=== PATIENT | female | born 1955 | race Caucasian/White ===

== ENCOUNTER 2023-01-09 18:11 | Inpatient (IN) | payer MEDICARE ==
[~2023-01-09] VITALS: Ht 160 cm; Wt 68.5 kg
[2023-01-09] MEDS ORDERED: AMLO10TA59 PO (18:30)
[2023-01-09] MEDS ORDERED: CLON-418 PO (18:30)
[2023-01-09] MEDS ORDERED: DESV100T12 PO (18:30)
[2023-01-09] MEDS ORDERED: TRAZ-182 PO (18:30)
[2023-01-09] MEDS ORDERED: BLOOD SUGAR DIAGNOSTIC 1 EACH STRIP VI ONE (22:45)
[2023-01-09] MEDS ORDERED: MAGNESIUM HYDROXIDE 30 ML LIQUID UDC PO PRN (22:45)
[2023-01-09] MEDS ORDERED: LORAZEPAM 1 MG TABLET PO PRN (22:45)
[2023-01-09] MEDS ORDERED: ACETAMINOPHEN 325 MG TABLET PO PRN (22:45)
[2023-01-09] MEDS ORDERED: MAG HYDROX/AL HYDROX/SIMETH 30 ML LIQUID UDC PO PRN (22:45)
[2023-01-09 23:09] VITALS: BP 129/81; TEMP 98.1; O2SAT 97
[2023-01-10] MEDS: TEMAZEPAM 7.5 MG CAPSULE PO PRN (00:06)
[2023-01-10 07:52] LABS: BASOPHILS # (AUTO) 0.1 K/UL (0.0-0.2); BASOPHILS % (AUTO) 1.4 % (0.0-2.0); EOSINOPHILS # (AUTO) 0.3 K/uL (0.0-0.7); EOSINOPHILS % (AUTO) 5.3 % (0.0-7.0); HEMATOCRIT 39.4 % (31.2-41.9); HEMOGLOBIN 13.6 g/dL (10.9-14.3); LYMPHOCYTES # (AUTO) 1.1 K/uL (0.8-4.8); LYMPHOCYTES % (AUTO) 22.2 % (20.5-51.5); MEAN CORPUSCULAR HEMOGLOBIN 34.6 uug (24.7-32.8); MEAN CORPUSCULAR HGB CONC 34 g/dL (32.3-35.6); MEAN CORPUSCULAR VOLUME 100.4 fL (75.5-95.3); MONOCYTES # (AUTO) 0.5 K/uL (0.1-1.30); MONOCYTES % (AUTO) 9.7 % (0.0-11.0); NEUTROPHILS # (AUTO) 2.9 K/uL (1.8-8.9); NEUTROPHILS % (AUTO) 61.4 % (38.5-71.5); PLATELET COUNT (AUTO) 355 K/uL (179-408); RED BLOOD CELL COUNT(AUTO) 3.93 MIL/uL (3.63-4.92); RED CELL DISTRIBUTION WIDTH 14.2 % (12.3-17.7); WHITE BLOOD COUNT (AUTO) 4.8 K/uL (3.8-11.8)
[2023-01-10 07:57] LABS: DIFFERENTIAL COMMENT 1
[2023-01-10 08:06] LABS: ALBUMIN 3.2 g/dL (3.4-5.0); BILIRUBIN,TOTAL 1.4 mg/dL (0.2-1.0); CALCIUM 9.8 mg/dL (8.5-10.1); CREATININE 0.8 mg/dL (0.6-1.3); POTASSIUM 4.1 mmol/L (3.5-5.1); TOTAL PROTEIN, SERUM 6.2 g/dL (6.4-8.2)
[2023-01-10 08:07] VITALS: BP 112/67; TEMP 98.2; O2SAT 97
[2023-01-10] MEDS ORDERED: AMLODIPINE 10 MG TABLET PO SCH ×2 (09:00)
[2023-01-10] MEDS ORDERED: CLONIDINE HCL PO SCH (09:00)
[2023-01-10] MEDS ORDERED: CLON0.1T PO (11:40)
[2023-01-10] MEDS: CLONIDINE HCL 0.1 MG TABLET PO SCH ×2 (11:45→17:00)
[2023-01-10] MEDS: VENLAFAXINE 25 MG TABLET PO SCH ×2 (15:15→20:28)
[2023-01-10 16:00] VITALS: BP 112/73; TEMP 97.2; O2SAT 98
[2023-01-10 20:00] VITALS: BP 122/89; TEMP 98.6; O2SAT 97
[2023-01-11 08:00] VITALS: BP 116/61; TEMP 98.2; O2SAT 99
[2023-01-11] MEDS: CLONIDINE HCL 0.1 MG TABLET PO SCH ×2 (09:00→18:02)
[2023-01-11] MEDS: VENLAFAXINE 25 MG TABLET PO SCH ×2 (09:25→21:42)
[2023-01-11] MEDS: ENSURE WITH FIBER 237 ML LIQUID (CHOCOLATE) PO SCH (15:00)
[2023-01-11 15:18] VITALS: BP 129/84; TEMP 98.2; O2SAT 99
[2023-01-11 20:00] VITALS: BP 122/95; TEMP 98.1; O2SAT 96
[2023-01-12 08:22] VITALS: BP 124/59; TEMP 97.6; O2SAT 97
[2023-01-12] MEDS: CLONIDINE HCL 0.1 MG TABLET PO SCH (08:47)
[2023-01-12] MEDS: ENSURE WITH FIBER 237 ML LIQUID (CHOCOLATE) PO SCH (08:49)
[2023-01-12] MEDS: VENLAFAXINE 25 MG TABLET PO SCH ×2 (08:49→20:57)
[2023-01-12] MEDS ORDERED: CLONIDINE HCL 0.1 MG TABLET PO PRN ×2 (14:45)
[2023-01-12 16:00] VITALS: BP 124/86; TEMP 98.2; O2SAT 98
[2023-01-12 20:11] VITALS: BP 112/72; TEMP 98.1; O2SAT 98
[2023-01-13 07:43] VITALS: BP 134/85; TEMP 98.3; O2SAT 100
[2023-01-13] MEDS: VENLAFAXINE 25 MG TABLET PO SCH ×2 (08:34→20:30)
[2023-01-13] MEDS: ENSURE WITH FIBER 237 ML LIQUID (CHOCOLATE) PO SCH (08:34)
[2023-01-13] MEDS: AMLODIPINE 10 MG TABLET PO SCH (08:39)
[2023-01-13] MEDS ORDERED: AMLODIPINE 10 MG TABLET PO SCH (09:00)
[2023-01-13 16:50] VITALS: BP 124/89; TEMP 98.1; O2SAT 100
[2023-01-13 20:16] VITALS: BP 125/81; TEMP 98; O2SAT 98
[2023-01-14 07:56] VITALS: BP 114/68; TEMP 98.1; O2SAT 100
[2023-01-14] MEDS: VENLAFAXINE 25 MG TABLET PO SCH ×2 (09:08→20:52)
[2023-01-14] MEDS: AMLODIPINE 10 MG TABLET PO SCH (09:09)
[2023-01-14] MEDS: ENSURE WITH FIBER 237 ML LIQUID (CHOCOLATE) PO SCH (09:09)
[2023-01-14 16:05] VITALS: BP 111/79; TEMP 98; O2SAT 99
[2023-01-14 19:53] VITALS: BP 128/80; TEMP 98.1; O2SAT 97
[2023-01-15 07:30] VITALS: BP 106/77; TEMP 98.2; O2SAT 98
[2023-01-15] MEDS: VENLAFAXINE 25 MG TABLET PO SCH (08:59)
[2023-01-15] MEDS: ENSURE WITH FIBER 237 ML LIQUID (CHOCOLATE) PO SCH (09:00)
[2023-01-15] MEDS: AMLODIPINE 10 MG TABLET PO SCH (09:00)
[2023-01-15 15:36] VITALS: BP 120/75; TEMP 98.2; O2SAT 98
[2023-01-15 20:00] VITALS: BP 141/76; TEMP 98.2; O2SAT 98
[2023-01-15] MEDS: VENLAFAXINE XR 37.5 MG CAP.SR.24H PO SCH (20:32)
[2023-01-15] MEDS: TEMAZEPAM 7.5 MG CAPSULE PO PRN (22:27)
[2023-01-16 07:53] VITALS: BP 118/64; TEMP 98; O2SAT 99
[2023-01-16 08:16] VITALS: BP 118/64
[2023-01-16] MEDS: AMLODIPINE 10 MG TABLET PO SCH (08:16)
[2023-01-16] MEDS: VENLAFAXINE XR 37.5 MG CAP.SR.24H PO SCH (08:16)
[2023-01-16] MEDS: ENSURE WITH FIBER 237 ML LIQUID (CHOCOLATE) PO SCH (08:18)
== END 2023-01-16 11:15 | disposition home or self-care (01) | DRG 885 ==
LOC: ER 18:15 → GPS 19:42
PROVIDERS: ADMIT Psychiatry & Neurology Psychiatry; ATTEND Nurse Practitioner Acute Care
DX: F33.2 Major depressive disorder, recurrent severe without psychotic features (principal); R45.851 Suicidal ideations; F10.14 Alcohol abuse with alcohol-induced mood disorder; E44.1 Mild protein-calorie malnutrition; E78.5 Hyperlipidemia, unspecified; F41.9 Anxiety disorder, unspecified; E88.09 Other disorders of plasma-protein metabolism, not elsewhere classified; I10 Essential (primary) hypertension; F10.10 Alcohol abuse, uncomplicated
CPT/HCPCS: 36415; 85025